=== PATIENT | male | born 1950 | race Two or more races ===

== ENCOUNTER → 2016-09-02 | Day surgery (SDC) | payer MEDICARE, OTHER ==
[~2016-09-02] MED LIST: IBUP-1007 PO; IV RINGERS,LACTATED 1000ML 1,000 ML IV SCH; LISI-334 PO; PROPOFOL 40 ML IV ONE; TRAM50TA PO
[2016-09-02 12:09] VITALS: BP 114/69
--- NOTE | 2016-09-03 13:51 | PATHOLOGY ---
PATHOLOGY REPORT * * * * * * * * FINAL DIAGNOSIS: Colon biopsy, transverse colon polyp: - Consistent with prominent fold. COMMENT: Sections of the transverse colon biopsy reveal a segment of colonic mucosa consistent with prominent mucosal fold. There are no adenomatous changes or evidence of malignancy. (JPM:; d/t: 09/03/16) REPORT ELECTRONICALLY SIGNED BY: Boris Ramírez M.D. DATE/TIME: 09/03/2016 13:34 * * * * * * * * GROSS PATHOLOGY: Received in formalin labeled "Jose J Jean Baptiste and transverse polyp," is a segment of renae soft tissue measuring 0.7 cm in maximum dimension. The specimen is submitted entirely in cassette A1. (TTL; 09/02/2016) INITIAL CPT CODE(S): A; 68657 Professional services performed [place] [address] Technical services performed by [facility] at [address] [place] [address], [facility] [address], [place] [address]. SPECIMEN(S) RECEIVED: A.Transverse colon polyp CLINICAL HISTORY: Screening; polyp PATIENT: JOSE J JEAN BAPTISTE /AGE: 411/29/1950 (Age: 65) PATIENT #: [id number] ALT CASE #: SPECIMEN COLLECTION DATE: 09/02/2016 SPECIMEN RECEIVED DATE: 09/02/2016 [facility] - [address] [place] [address] - PHONE: [phone] * * * END OF REPORT * * *
== END ==
LOC: SURG 10:04
PROVIDERS: ATTEND Internal Medicine Gastroenterology
DX: D12.3 Benign neoplasm of transverse colon (principal); K64.0 First degree hemorrhoids; K57.30 Diverticulosis of large intestine without perforation or abscess without bleeding; I10 Essential (primary) hypertension; M19.90 Unspecified osteoarthritis, unspecified site; F15.90 Other stimulant use, unspecified, uncomplicated
CPT/HCPCS: 45380; J2704; 88305